=== PATIENT | male | born 1980 | race Caucasian/White ===

== ENCOUNTER 2022-02-16 11:16 | Emergency (ER) | payer MEDICAID, SELFPAY ==
[2022-02-16 11:18] VITALS: BP 126/76; PULSE 87; RESP 14; TEMP 36.2; O2SAT 100; BMI 29.3
--- NOTE | 2022-02-16 11:41 | ED.VIS.DYS ---
HPI <JENNIFER Hector Last Filed: 02/16/22 12:33> History of Present Illness Chief Complaint: Cold Sx Narrative Narrative: 41-year-old male with no past medical history presents with 4-day history of cold symptoms. He states it started with fatigue and a sore throat which has resolved. He now has a productive cough, intermittent fever, and just feels rundown. He is here because he needs a work note. He denies chest pain or shortness of breath. No chills, nausea, vomiting, abdominal pain or diarrhea. He smokes 1 PPD. PFSH <JENNIFER Hector Last Filed: 02/16/22 12:33> [facility] Medical History no medical history Home Medications NK 02/16/22 [History Last Taken Unknown] Allergy/AdvReac Type Severity Reaction Status Date / Time No Known Allergies Allergy Verified 02/16/22 11:18 Surgical History no surgical history Social History Smoking Status: Current every day smoker tobacco type: cigarettes ROS <JENNIFER Hector Last Filed: 02/16/22 12:33> ROS ED ROS Narrative Constitutional: Positive for fever, malaise. Eyes: Negative for visual change. ENT: Positive for sore throat. Negative for ear pain, rhinorrhea. CVS: Negative for palpitations, chest pain, syncope. Respiratory: Positive for cough. Negative for shortness of breath, orthopnea. GI: Negative for abdominal pain, nausea, vomiting, diarrhea, constipation, melena, hematochezia. : Negative for dysuria, hematuria or frequency. Neuro: Negative for headache, motor/sensory dysfunction. Skin: Negative for rash, abscess, or wound. Musc: Negative for joint pain, swelling, trauma. Heme: Negative for easy bruising, bleeding, lymphadenopathy. EXAM <JENNIFER Hector Last Filed: 02/16/22 12:33> Physical Exam Narrative Exam Narrative: CONST: Patient sitting in no acute distress. EYES: Normal inspection. ENT: Normal oropharynx, moist mucous membranes. NECK: No lymphadenopathy, trachea midline. RESP: No respiratory distress, CTAB. CVS: Regular rate and rhythm, no murmur, no gallop. SKIN: Color normal, no rash, warm, dry, intact. EXTREMITIES: Normal appearance, no pedal edema. NEURO: Oriented x4. PSYCH: Normal affect. Const Vital Signs: 02/16/22 11:18 02/16/22 11:56 02/16/22 12:56 Temperature 97.2 F L Temperature Source Temporal Pulse Rate 87 81 Respiratory Rate 14 16 Respiratory Effort Normal Respiratory Depth Normal Respiratory Pattern Normal Blood Pressure 126/76 H 133/92 H Blood Pressure Mean 92 Pulse Ox 100 97 Oxygen Delivery Method Room Air Room Air <Dr. Sriram Brooks DO - Last Filed: 02/16/22 13:01> Physical Exam Const Vital Signs: 02/16/22 11:18 02/16/22 11:56 02/16/22 12:56 Temperature 97.2 F L Temperature Source Temporal Pulse Rate 87 81 Respiratory Rate 14 16 Respiratory Effort Normal Respiratory Depth Normal Respiratory Pattern Normal Blood Pressure 126/76 H 133/92 H Blood Pressure Mean 92 Pulse Ox 100 97 Oxygen Delivery Method Room Air Room Air [facility] <JENNIFER Hector - Last Filed: 02/16/22 12:33> [facility] Narrative Medical decision making narrative: Patient presents with history of fever, sore throat, and cough. He appears well nontoxic. Afebrile and vital signs unremarkable. Overall medical exam is unremarkable. I offered a COVID/influenza test but he declined because he doesn't have insurance and is only here for a work note. Patient counseled on symptomatic treatment and return precautions and was discharged in stable condition. <Dr. Sriram Brooks, - Last Filed: 02/16/22 13:01> [facility] Narrative Medical decision making narrative: 41-year-old male presenting with viral symptoms. Vital signs are stable he is afebrile. Lungs clear to auscultation. HEENT exam unremarkable. Patient request a work note since he missed work yesterday and today. I counseled him that he could have 1 for today but I could not give him 1 retroactively. Patient does not want to be tested for anything. Patient is given a work note for today discharged home in stable condition. Impression: 1. Viral syndrome Discharge Plan Triage Chief Complaint: Cold Sx ED Provider: Viviana Ford Dx/Rx/DC Orders Clinical Impression: Acute viral syndrome Instructions: ED Viral Syndrome (Adult) Prescriptions: No Action NK RF: 0 Stand Alone Forms: ED Work / School Excuse Primary Care Provider: Care Physician,No Primary Referrals: Care Physician,No Primary [Primary Care Provider] - Activity Restrictions/Additional Instructions: Take Tylenol ibuprofen as needed every 6 hours. Rest and drink fluids. If symptoms worsen including if you develop shortness of breath come back to the ER. Disposition Disposition: Home, Self Care Discharge Date/Time: 02/16/22 12:50
[2022-02-16 11:56] VITALS: O2SAT 99
[2022-02-16 12:56] VITALS: BP 133/92; PULSE 81; RESP 16; O2SAT 97
== END 2022-02-16 12:50 | disposition home or self-care (01) ==
PROVIDERS: Emergency Provider Physician Assistant; Visit Provider Physician Assistant
DX: B34.9 Viral infection, unspecified (principal); F17.210 Nicotine dependence, cigarettes, uncomplicated
CPT/HCPCS: 99282